=== PATIENT | female | born 1960 | race Caucasian/White ===

== ENCOUNTER 2021-09-04 07:45 | Day surgery (SDC) | payer OTHER ==
[~2021-09-04] VITALS: Ht 165.1 cm; Wt 63.2 kg
[~2021-09-04 07:45] MED LIST: ALPR.5 PO; AMOX500 PO; CLOBETASOL EMOL15 G1; HYDACE10B PO; MELATONIN 5 MG1 EACH PO; METO25ER; METO25ER PO; PRAM.5 PO; PRAV20 PO; Percocet 5-3251 EACH PO; QUET25 PO
--- NOTE | 2021-09-04 08:41 | NUR ---
Ambulatory in Day Surgery History, Chart, Medications and Allergies reviewed before start of procedure. Lungs clear T/O to Auscultation. Patient confirms NPO status and agrees with scheduled surgery. Pre-Op teaching done. Pt verbalizes understanding. Patient States Post-Procedure ride home has been arranged.
--- NOTE | 2021-09-04 08:54 | NUR ---
09/04/21 0854 Raul Mulligan History, Chart, Medications and Allergies reviewed before start of procedure. Patient confirms NPO status and agrees with scheduled surgery. 3-LEAD EKG REVIEWED WITH PHYSICIAN PRIOR TO START OF PROCEDURE. MONITOR INTACT WITH CONTINUOUS PULSE OXIMETRY AND INTERMITTENT BP. PATIENT DETERMINED TO BE ASA APPROPRIATE FOR PROPOFOL SEDATION PRIOR TO START OF PROCEDURE BY DR. RAMOS
--- NOTE | 2021-09-04 09:27 | NUR ---
INTO STEP VSS WAKING UP GIVEN DRINK TO DRINK AT BEDSIDE
--- NOTE | 2021-09-04 09:35 | NUR ---
Discharge instructions reviewed with patient. Patient verbalizes understanding. Copy given to patient to take home. Patient States Post-Procedure ride home has been arranged. Discharged via wheelchair to private car for ride home.
== END 2021-09-04 22:51 | disposition home or self-care (01) ==
LOC: ORSCMMR 07:45 → ORD 09:00 → ORSCMMR 09:00
PROVIDERS: Internal Medicine Gastroenterology
PROC: 0DBE8ZX Excision of Large Intestine, Via Natural or Artificial Opening Endoscopic, Diagnostic (ICD-10-PCS; principal; 2021-09-04 09:00)
DX: R19.7 Diarrhea, unspecified (principal); K52.831 Collagenous colitis; M79.7 Fibromyalgia; F41.0 Panic disorder [episodic paroxysmal anxiety]; F17.210 Nicotine dependence, cigarettes, uncomplicated; I10 Essential (primary) hypertension; E78.00 Pure hypercholesterolemia, unspecified; Z79.899 Other long term (current) drug therapy
CPT/HCPCS: J2704; J7120

== ENCOUNTER 2024-08-24 12:14 | Emergency (ER) | payer OTHER ==
[~2024-08-24] VITALS: Ht 162.6 cm; Wt 56.7 kg
[2024-08-24 12:26] VITALS: BP 138/66
== END 2024-08-24 13:40 | disposition home or self-care (01) ==
LOC: ER 12:14
DX: M25.562 Pain in left knee (principal); F17.200 Nicotine dependence, unspecified, uncomplicated; Z79.899 Other long term (current) drug therapy; Z91.012 Allergy to eggs; Z91.040 Latex allergy status
CPT/HCPCS: 73590; 99283-25